=== PATIENT | female | born 1960 | race Caucasian/White ===

== ENCOUNTER 2024-06-09 08:16 | Outpatient (CLI) | payer MEDICAID, SELFPAY | END 2024-06-09 08:17 | disposition home or self-care (01) | LOC: WOUND 08:21 | PROVIDERS: Visit Provider Nurse Practitioner Family | DX: T81.31XA Disruption of external operation (surgical) wound, not elsewhere classified, initial encounter (principal); I10 Essential (primary) hypertension | CPT/HCPCS: 11043; G0463 ==

== ENCOUNTER 2024-06-16 13:28 | Outpatient (CLI) | payer MEDICAID, SELFPAY | END 2024-06-16 13:29 | disposition home or self-care (01) | LOC: WOUND 13:29 | PROVIDERS: Visit Provider Nurse Practitioner Family | DX: T81.31XA Disruption of external operation (surgical) wound, not elsewhere classified, initial encounter (principal); I10 Essential (primary) hypertension | CPT/HCPCS: 11042; 87070; 87186; 96372; J0696 ==

== ENCOUNTER 2024-06-23 10:44 | Outpatient (CLI) | payer MEDICAID, SELFPAY | END 2024-06-23 10:45 | disposition home or self-care (01) | LOC: WOUND 10:44 | PROVIDERS: Visit Provider Nurse Practitioner Family | DX: T81.31XA Disruption of external operation (surgical) wound, not elsewhere classified, initial encounter (principal); I10 Essential (primary) hypertension | CPT/HCPCS: 97605; G0463 ==

== ENCOUNTER 2024-06-27 10:50 | Outpatient (CLI) | payer MEDICAID, SELFPAY | END 2024-06-27 10:51 | disposition home or self-care (01) | LOC: WOUND 10:50 | PROVIDERS: Visit Provider Nurse Practitioner Family | DX: T81.31XA Disruption of external operation (surgical) wound, not elsewhere classified, initial encounter (principal) | CPT/HCPCS: 97605 ==

== ENCOUNTER 2024-07-01 10:27 | Outpatient (CLI) | payer MEDICAID, SELFPAY | END 2024-07-01 10:28 | disposition home or self-care (01) | LOC: WOUND 10:27 | PROVIDERS: Visit Provider Physician Assistant | DX: T81.31XA Disruption of external operation (surgical) wound, not elsewhere classified, initial encounter (principal); I10 Essential (primary) hypertension | CPT/HCPCS: 97597 ==

== ENCOUNTER 2024-07-08 12:29 | Outpatient (CLI) | payer MEDICAID, SELFPAY | END 2024-07-08 12:30 | disposition home or self-care (01) | LOC: WOUND 12:29 | PROVIDERS: Visit Provider Physician Assistant Surgical | DX: T81.31XA Disruption of external operation (surgical) wound, not elsewhere classified, initial encounter (principal) | CPT/HCPCS: 97597 ==

== ENCOUNTER 2024-07-15 10:32 | Outpatient (CLI) | payer MEDICAID, SELFPAY | END 2024-07-15 10:33 | disposition home or self-care (01) | LOC: WOUND 10:32 | PROVIDERS: Visit Provider Nurse Practitioner Family | DX: T81.31XA Disruption of external operation (surgical) wound, not elsewhere classified, initial encounter (principal) | CPT/HCPCS: 11042 ==

== ENCOUNTER 2024-07-22 10:18 | Outpatient (CLI) | payer MEDICAID, SELFPAY | END 2024-07-22 10:19 | disposition home or self-care (01) | LOC: WOUND 10:18 | PROVIDERS: Visit Provider Nurse Practitioner Family | DX: T81.31XA Disruption of external operation (surgical) wound, not elsewhere classified, initial encounter (principal) | CPT/HCPCS: 11042; 97605 ==

== ENCOUNTER 2024-07-29 10:29 | Outpatient (CLI) | payer MEDICAID, SELFPAY | END 2024-07-29 10:30 | disposition home or self-care (01) | LOC: WOUND 10:29 | PROVIDERS: Visit Provider Physician Assistant | DX: T81.31XA Disruption of external operation (surgical) wound, not elsewhere classified, initial encounter (principal) | CPT/HCPCS: 97597; 97605 ==

== ENCOUNTER 2024-08-05 10:22 | Outpatient (CLI) | payer MEDICAID, SELFPAY | END 2024-08-05 10:23 | disposition home or self-care (01) | LOC: WOUND 10:23 | PROVIDERS: Visit Provider Nurse Practitioner Family | DX: T81.31XA Disruption of external operation (surgical) wound, not elsewhere classified, initial encounter (principal); I10 Essential (primary) hypertension | CPT/HCPCS: 11042 ==

== ENCOUNTER 2024-08-12 14:38 | Outpatient (CLI) | payer OTHER, SELFPAY | END 2024-08-12 14:39 | disposition home or self-care (01) | LOC: WOUND 14:38 | PROVIDERS: Visit Provider Nurse Practitioner Family | DX: T81.31XA Disruption of external operation (surgical) wound, not elsewhere classified, initial encounter (principal); I10 Essential (primary) hypertension | CPT/HCPCS: 11042 ==

== ENCOUNTER 2024-08-19 14:12 | Outpatient (CLI) | payer OTHER, SELFPAY | END 2024-08-19 14:13 | disposition home or self-care (01) | LOC: WOUND 14:12 | PROVIDERS: Visit Provider Nurse Practitioner Family | DX: T81.31XA Disruption of external operation (surgical) wound, not elsewhere classified, initial encounter (principal); I10 Essential (primary) hypertension | CPT/HCPCS: 11042 ==

== ENCOUNTER 2024-08-26 13:57 | Outpatient (CLI) | payer MEDICAID, SELFPAY | END 2024-08-26 13:58 | disposition home or self-care (01) | LOC: WOUND 13:57 | PROVIDERS: Visit Provider Family Medicine | DX: T81.31XA Disruption of external operation (surgical) wound, not elsewhere classified, initial encounter (principal); I10 Essential (primary) hypertension | CPT/HCPCS: 11042 ==

== ENCOUNTER 2024-09-09 10:17 | Outpatient (CLI) | payer OTHER, SELFPAY | END 2024-09-09 10:18 | disposition home or self-care (01) | LOC: WOUND 10:17 | PROVIDERS: Visit Provider Nurse Practitioner Family | DX: T81.31XA Disruption of external operation (surgical) wound, not elsewhere classified, initial encounter (principal); I10 Essential (primary) hypertension | CPT/HCPCS: 11042 ==

== ENCOUNTER 2024-09-15 08:39 | Outpatient (CLI) | payer OTHER, SELFPAY | END 2024-09-15 08:40 | disposition home or self-care (01) | LOC: WOUND 08:39 | PROVIDERS: Visit Provider Nurse Practitioner Family | DX: T81.31XA Disruption of external operation (surgical) wound, not elsewhere classified, initial encounter (principal); I10 Essential (primary) hypertension | CPT/HCPCS: 11042 ==

== ENCOUNTER 2024-09-23 10:26 | Outpatient (CLI) | payer OTHER, SELFPAY | END 2024-09-23 10:27 | disposition home or self-care (01) | LOC: WOUND 10:26 | PROVIDERS: Visit Provider Physician Assistant | DX: T81.31XA Disruption of external operation (surgical) wound, not elsewhere classified, initial encounter (principal); I10 Essential (primary) hypertension | CPT/HCPCS: 97597 ==

== ENCOUNTER 2024-09-29 10:50 | Outpatient (CLI) | payer OTHER, SELFPAY | END 2024-09-29 10:51 | disposition home or self-care (01) | LOC: WOUND 10:50 | PROVIDERS: Visit Provider Nurse Practitioner Family | DX: T81.31XA Disruption of external operation (surgical) wound, not elsewhere classified, initial encounter (principal); I10 Essential (primary) hypertension | CPT/HCPCS: 11042 ==

== ENCOUNTER 2024-10-06 10:59 | Outpatient (CLI) | payer OTHER, SELFPAY | END 2024-10-06 11:00 | disposition home or self-care (01) | LOC: WOUND 10:59 | PROVIDERS: Visit Provider Nurse Practitioner Family | DX: T81.31XA Disruption of external operation (surgical) wound, not elsewhere classified, initial encounter (principal); I10 Essential (primary) hypertension | CPT/HCPCS: 11042 ==

== ENCOUNTER 2024-10-14 13:39 | Outpatient (CLI) | payer OTHER, SELFPAY | END 2024-10-14 13:40 | disposition home or self-care (01) | LOC: WOUND 13:40 | PROVIDERS: Visit Provider Nurse Practitioner Family | DX: T81.31XA Disruption of external operation (surgical) wound, not elsewhere classified, initial encounter (principal); I10 Essential (primary) hypertension | CPT/HCPCS: 11042 ==

== ENCOUNTER 2024-10-20 10:15 | Outpatient (CLI) | payer OTHER, SELFPAY | END 2024-10-20 10:16 | disposition home or self-care (01) | LOC: WOUND 10:15 | PROVIDERS: Visit Provider Physician Assistant Surgical | DX: T81.31XA Disruption of external operation (surgical) wound, not elsewhere classified, initial encounter (principal) | CPT/HCPCS: 11042 ==

== ENCOUNTER 2024-11-03 10:23 | Outpatient (CLI) | payer OTHER, SELFPAY | END 2024-11-03 10:24 | disposition home or self-care (01) | LOC: WOUND 10:23 | PROVIDERS: Visit Provider Nurse Practitioner Family | DX: T81.31XA Disruption of external operation (surgical) wound, not elsewhere classified, initial encounter (principal); B95.61 Methicillin susceptible Staphylococcus aureus infection as the cause of diseases classified elsewhere; I10 Essential (primary) hypertension | CPT/HCPCS: 11042; 87070; 87186 ==

== ENCOUNTER 2024-11-10 10:02 | Outpatient (CLI) | payer OTHER, SELFPAY | END 2024-11-10 10:03 | disposition home or self-care (01) | LOC: WOUND 10:02 | PROVIDERS: Visit Provider Nurse Practitioner Family | DX: T81.31XA Disruption of external operation (surgical) wound, not elsewhere classified, initial encounter (principal); I10 Essential (primary) hypertension | CPT/HCPCS: 11042 ==

== ENCOUNTER 2024-11-24 09:48 | Outpatient (CLI) | payer OTHER, SELFPAY | END 2024-11-24 09:49 | disposition home or self-care (01) | LOC: WOUND 09:48 | PROVIDERS: Visit Provider Nurse Practitioner Family | DX: T81.31XA Disruption of external operation (surgical) wound, not elsewhere classified, initial encounter (principal); I10 Essential (primary) hypertension | CPT/HCPCS: 15271; Q4121 ==

== ENCOUNTER 2024-12-01 09:11 | Outpatient (CLI) | payer OTHER, SELFPAY | END 2024-12-01 09:12 | disposition home or self-care (01) | LOC: WOUND 09:11 | PROVIDERS: Visit Provider Physician Assistant | DX: T81.31XA Disruption of external operation (surgical) wound, not elsewhere classified, initial encounter (principal); I10 Essential (primary) hypertension | CPT/HCPCS: G0463 ==

== ENCOUNTER 2024-12-15 09:52 | Outpatient (CLI) | payer OTHER, SELFPAY | END 2024-12-15 09:53 | disposition home or self-care (01) | LOC: WOUND 09:52 | PROVIDERS: Visit Provider Nurse Practitioner Family | DX: T81.31XA Disruption of external operation (surgical) wound, not elsewhere classified, initial encounter (principal); I10 Essential (primary) hypertension | CPT/HCPCS: 15271; Q4121 ==

== ENCOUNTER 2024-12-22 14:49 | Outpatient (CLI) | payer OTHER, SELFPAY | END 2024-12-22 14:50 | disposition home or self-care (01) | LOC: WOUND 14:49 | PROVIDERS: Visit Provider Nurse Practitioner Family | DX: T81.31XA Disruption of external operation (surgical) wound, not elsewhere classified, initial encounter (principal); I10 Essential (primary) hypertension | CPT/HCPCS: G0463 ==

== ENCOUNTER 2024-12-29 10:50 | Outpatient (CLI) | payer OTHER, SELFPAY | END 2024-12-29 10:51 | disposition home or self-care (01) | LOC: WOUND 10:50 | PROVIDERS: Visit Provider Nurse Practitioner Family | DX: T81.31XA Disruption of external operation (surgical) wound, not elsewhere classified, initial encounter (principal); I10 Essential (primary) hypertension | CPT/HCPCS: 15275; Q4121 ==

== ENCOUNTER 2025-01-05 10:19 | Outpatient (CLI) | payer OTHER, SELFPAY | END 2025-01-05 10:20 | disposition home or self-care (01) | LOC: WOUND 10:19 | PROVIDERS: Visit Provider Nurse Practitioner Family | DX: T81.31XA Disruption of external operation (surgical) wound, not elsewhere classified, initial encounter (principal); I87.2 Venous insufficiency (chronic) (peripheral); I10 Essential (primary) hypertension | CPT/HCPCS: 11042 ==

== ENCOUNTER 2025-01-19 09:09 | Outpatient (CLI) | payer OTHER, SELFPAY | END 2025-01-19 09:10 | disposition home or self-care (01) | LOC: WOUND 09:09 | PROVIDERS: Visit Provider Nurse Practitioner Family | DX: T81.31XA Disruption of external operation (surgical) wound, not elsewhere classified, initial encounter (principal); B95.61 Methicillin susceptible Staphylococcus aureus infection as the cause of diseases classified elsewhere; I10 Essential (primary) hypertension | CPT/HCPCS: 11042; 87070; 87186 ==

== ENCOUNTER 2025-01-26 09:13 | Outpatient (CLI) | payer OTHER, SELFPAY | END 2025-01-26 09:14 | disposition home or self-care (01) | LOC: WOUND 09:13 | PROVIDERS: Visit Provider Nurse Practitioner Family | DX: T81.31XA Disruption of external operation (surgical) wound, not elsewhere classified, initial encounter (principal); I10 Essential (primary) hypertension | CPT/HCPCS: 11042 ==

== ENCOUNTER 2025-02-09 09:03 | Outpatient (CLI) | payer OTHER, SELFPAY | END 2025-02-09 09:04 | disposition home or self-care (01) | LOC: WOUND 09:03 | PROVIDERS: Visit Provider Nurse Practitioner Family | DX: T81.31XA Disruption of external operation (surgical) wound, not elsewhere classified, initial encounter (principal); I10 Essential (primary) hypertension | CPT/HCPCS: 11042 ==

== ENCOUNTER 2025-02-23 09:14 | Outpatient (CLI) | payer OTHER, SELFPAY | END 2025-02-23 09:15 | disposition home or self-care (01) | LOC: WOUND 09:14 | PROVIDERS: Visit Provider Nurse Practitioner Family | DX: T81.31XA Disruption of external operation (surgical) wound, not elsewhere classified, initial encounter (principal); I10 Essential (primary) hypertension | CPT/HCPCS: 15271; Q4121 ==

== ENCOUNTER 2025-03-02 09:10 | Outpatient (CLI) | payer MEDICARE, SELFPAY | END 2025-03-02 09:11 | disposition home or self-care (01) | PROVIDERS: Visit Provider Nurse Practitioner Family | DX: T81.31XA Disruption of external operation (surgical) wound, not elsewhere classified, initial encounter (principal); I10 Essential (primary) hypertension | CPT/HCPCS: G0463 ==

== ENCOUNTER 2025-03-09 09:12 | Outpatient (CLI) | payer MEDICARE, SELFPAY | END 2025-03-09 09:13 | disposition home or self-care (01) | PROVIDERS: Visit Provider Nurse Practitioner Family | DX: T81.31XA Disruption of external operation (surgical) wound, not elsewhere classified, initial encounter (principal); I10 Essential (primary) hypertension | CPT/HCPCS: G0463 ==

== ENCOUNTER 2025-03-16 09:28 | Outpatient (CLI) | payer MEDICARE, SELFPAY | END 2025-03-16 09:29 | disposition home or self-care (01) | LOC: WOUND 09:28 | PROVIDERS: Visit Provider Nurse Practitioner Family | DX: T81.31XA Disruption of external operation (surgical) wound, not elsewhere classified, initial encounter (principal); I10 Essential (primary) hypertension | CPT/HCPCS: 11042 ==

== ENCOUNTER 2025-03-23 08:48 | Outpatient (CLI) | payer MEDICARE, SELFPAY | END 2025-03-23 08:49 | disposition home or self-care (01) | LOC: WOUND 08:48 | PROVIDERS: Visit Provider Nurse Practitioner Family | DX: T81.31XA Disruption of external operation (surgical) wound, not elsewhere classified, initial encounter (principal); L97.422 Non-pressure chronic ulcer of left heel and midfoot with fat layer exposed; I10 Essential (primary) hypertension | CPT/HCPCS: 97597 ==

== ENCOUNTER 2025-03-30 09:13 | Outpatient (CLI) | payer MEDICARE, SELFPAY | END 2025-03-30 09:14 | disposition home or self-care (01) | LOC: WOUND 09:13 | PROVIDERS: Visit Provider Nurse Practitioner Family | DX: T81.31XA Disruption of external operation (surgical) wound, not elsewhere classified, initial encounter (principal); L97.422 Non-pressure chronic ulcer of left heel and midfoot with fat layer exposed; I10 Essential (primary) hypertension | CPT/HCPCS: 11042 ==

== ENCOUNTER 2025-04-13 09:15 | Outpatient (CLI) | payer MEDICARE, SELFPAY | END 2025-04-13 09:16 | disposition home or self-care (01) | LOC: WOUND 09:15 | PROVIDERS: Visit Provider Nurse Practitioner Family | DX: T81.31XA Disruption of external operation (surgical) wound, not elsewhere classified, initial encounter (principal); I10 Essential (primary) hypertension; L97.422 Non-pressure chronic ulcer of left heel and midfoot with fat layer exposed | CPT/HCPCS: 11042 ==

== ENCOUNTER 2025-05-04 09:08 | Outpatient (CLI) | payer MEDICARE, SELFPAY | END 2025-05-04 09:09 | disposition home or self-care (01) | LOC: WOUND 09:08 | PROVIDERS: Visit Provider Nurse Practitioner Family | DX: T81.31XA Disruption of external operation (surgical) wound, not elsewhere classified, initial encounter (principal); I10 Essential (primary) hypertension | CPT/HCPCS: 97597 ==